=== PATIENT | male | born 1975 | race American Indian/Alaskan Native ===

== ENCOUNTER 2024-12-03 06:02 | Emergency (ER) | payer SELFPAY ==
[~2024-12-03] VITALS: Ht 172.7 cm; Wt 88.9 kg
[2024-12-03 06:18] LABS: BILIRUBIN, URINE POSITIVE (negative); BLOOD/HGB, URINE NEGATIVE (Negative); KETONE, URINE NEGATIVE (Negative); LEUK ESTERASE, URINE NEGATIVE (negative); NITRITE, URINE NEGATIVE (negative); PH, URINE 7.5 (5-7)
[2024-12-03 06:20] LABS: BASOPHILS 0.9 % (0-2); EOSINOPHILS 4.5 % (0-6); HEMATOCRIT 43.7 % (35.0-50.0); HEMOGLOBIN 15.1 g/dL (12.0-18.0); LYMPHOCYTES 24.4 % (24-44); MCH 28.7 (27-36); MCHC 34.7 g/dl (30-36); MCV 82.8 fl (81-99); NEUTROPHILS 53.2 % (39-80); PLATELET COUNT 384 K/uL (140-440); RBC 5.28 M/ul (4.3-5.7); RDW 14.1 (10.5-15.0)
[2024-12-03 06:37] LABS: ALBUMIN 3.8 g/dL (3.4-5.0); ALBUMIN/GLOBULIN RATIO 1.06 (1.1-2.4); ANION GAP 10.5 (7-21); BILIRUBIN, TOTAL 0.3 mg/dL (0.2-1.0); BUN/CREATININE RATIO 7.52 (6.0-28.6); CALCIUM 8.5 mg/dL (8.5-10.1); CREATININE, SERUM 0.93 mg/dL (0.70-1.30); POTASSIUM 3.5 mmol/L (3.5-5.1); PROTEIN, TOTAL 7.4 g/dL (6.4-8.2)
[2024-12-03 06:49] LABS: CORONAVIRUS COVID-19 AG NEGATIVE (NEGATIVE); INFLUENZA A AG NEGATIVE (NEGATIVE); INFLUENZA B AG NEGATIVE (NEGATIVE)
[2024-12-03] MEDS ORDERED: CYCLOBENZAPRINE10 MG PO (07:15)
[2024-12-03] MEDS ORDERED: CELEBREX100 MG PO (07:15)
[2024-12-03 07:25] VITALS: BP 158/98
== END 2024-12-03 07:25 | disposition home or self-care (01) ==
LOC: ED 06:02
PROVIDERS: Family Medicine
DX: R10.9 Unspecified abdominal pain (principal)
CPT/HCPCS: 36415; 71045; 74176; 80053; 81003; 83690; 85025; 99284-25